=== PATIENT | female | born 1980 | race Two or more races ===

== ENCOUNTER 2025-01-12 10:15 | Inpatient (IN) | payer OTHER ==
[~2025-01-12] VITALS: Ht 160 cm; Wt 83.0 kg
[2025-01-12] MEDS ORDERED: TOPROL XL25 M1 PO (11:37)
[2025-01-12] MEDS ORDERED: COZAAR100 MG PO (11:37)
[2025-01-12] MEDS ORDERED: METFORMIN HCL500 M3 PO (11:37)
[2025-01-12] MEDS ORDERED: NIFEDIPINE20 MG PO (11:37)
[2025-01-12 11:39] VITALS: BP 135/87
[2025-01-18] MEDS ORDERED: CEFAZOLIN SODIUM 1,000 MG VIAL ONE (09:58)
[2025-01-18] MEDS ORDERED: POVIDONE-IODINE 118 ML BOTT TOP ONE (11:01)
[2025-01-18] MEDS ORDERED: SUGAMMADEX SODIUM 200 MG/2 ML VIAL IV ONE (12:39)
[2025-01-18] MEDS ORDERED: ONDANSETRON HCL 2 MG/ML VIAL IV PRN ×2 (13:00→13:15)
[2025-01-18] MEDS ORDERED: MORPHINE SULFATE 4 MG,MORPHINE SULFATE 2 MG IV PRN (13:00)
[2025-01-18] MEDS ORDERED: ATORVASTATIN CALCIUM 10 MG TABLET PO SCH (13:12)
[2025-01-18] MEDS ORDERED: DEXTROSE 50 % IN WATER 0.5 G/ML DISP.SYRIN IV PRN (13:15)
[2025-01-18] MEDS ORDERED: RINGERS SOLUTION,LACTATED 1,000 ML IV SCH (13:15)
[2025-01-18] MEDS ORDERED: INSULIN LISPRO 1,000 UNIT/10 ML UNITS SUBCUTANEO PRN (13:15)
[2025-01-18 16:39] LABS: BASO % 0.3 % (0.1-1.2); EOS # 0.01 (0.04-0.54); EOS % 0.1 % (0.7-7.0); LYMPH # 1.46 (1.18-3.74); LYMPH % 10.8 % (19.3-53.1); MEAN PLATELET VOLUME 10.00 fl (9.4-12.4); MONO # 0.46 (0.24-0.82); MONO % 3.4 % (4.7-12.5); NEUT # 11.56 (1.56-6.13); NEUT % 85.1 % (34.0-71.1); RED CELL DISTRIBUTION WIDTH 15.7 % (11.6-14.4)
[2025-01-18 18:28] VITALS: BP 140/87
[2025-01-19 00:13] VITALS: BP 136/82
[2025-01-19 05:00] VITALS: BP 143/88
[2025-01-19] MEDS ORDERED: NEURONTIN300 MG PO (07:16)
[2025-01-19] MEDS ORDERED: IBU800 MG PO (07:16)
[2025-01-19 08:15] VITALS: BP 135/80
[2025-01-19] MEDS ORDERED: LOSARTAN POTASSIUM 100 MG TABLET PO SCH (09:00)
[2025-01-19] MEDS ORDERED: NIFEDIPINE 20 MG CAPSULE PO SCH (09:00)
[2025-01-19] MEDS ORDERED: METOPROLOL SUCCINATE 25 MG TAB.SR.24H PO SCH (09:00)
[2025-01-19] MEDS ORDERED: ENOXAPARIN SODIUM 40 MG/0.4 ML SYRINGE SUBCUTANEO SCH (09:00)
== END 2025-01-19 09:12 | disposition home or self-care (01) | DRG 743 ==
LOC: EDSTATUS 10:15 → O/R 01-18 08:52 → OB/GYN 01-18 08:52 → CIR.AMB 01-18 10:15 → SURG 01-18 10:15 → EDSTATUS 01-18 10:15 → SURG 01-18 11:30 → OB/GYN 01-18 15:39
PROVIDERS: ADMIT Obstetrics & Gynecology Gynecology; ATTEND Obstetrics & Gynecology Gynecology
PROC: 0UT74ZZ Resection of Bilateral Fallopian Tubes, Percutaneous Endoscopic Approach (ICD-10-PCS; 2025-01-18)
PROC: 0UT94ZZ Resection of Uterus, Percutaneous Endoscopic Approach (ICD-10-PCS; principal; 2025-01-18 11:30)
DX: D25.1 Intramural leiomyoma of uterus (principal); D25.0 Submucous leiomyoma of uterus; N92.1 Excessive and frequent menstruation with irregular cycle; N72 Inflammatory disease of cervix uteri